=== PATIENT | male | born 1940 | race Caucasian/White ===

== ENCOUNTER 2022-06-01 18:34 | Observation (INO) ==
--- NOTE | 2022-06-01 20:03 | DR.N/VMALE ---
HPI Time Seen Time Seen by Provider: 06/01/22 20:01 Primary Care Physician Primary Care Physician: pascual marvin Complaints Chief Complaint Doctors Comments: NAUSEA AND VOMITING FOR 2 DAYS AND INCREASED URINATION WHICH IS A CHRONIC PROBLEM. WAS URINATING A LOT AND WAS STARTED ON MYRBETRIQ TO SLOW IT DOWN. HE HAS TAKE 3 DOSES SO FAR AND NOW HE HAS PROBLEMS URINATING. Chief Complaint:: pt c/o n/v x 2 with fever and freq urinations which is a chronic problem COVID-19 Coronavirus risk:travel/contact w/high risk person: No Has patient experienced Coronavirus symptoms: Yes Coronavirus symptoms experienced: Fever Source History Provided: Patient Mode of Arrival Mode of Arrival: Ambulatory Timing Onset of Chief Complaint: 06/01/22 PMH PMH Past Medical History: Yes Past Medical History: Diabetes and Hypertension Past Surgical History: Yes Surgical History: Appendectomy Family History History of Family Medical Conditions: Yes Family Medical History: Diabetes Mellitus, Cancer and Hypertension Social History Type of Tobacco Use: None Does any household member use tobacco: No Alcohol Use: None Do you use any recreational Drugs:: No Lives With: Family Lives Where: Home Travel Risk Coronavirus risk:travel/contact w/high risk person: No Has patient experienced Coronavirus symptoms: Yes Coronavirus symptoms experienced: Fever Infectious screening In the last 2 months have you had wt loss of >10#?: NO Have you had fever, night sweats or hemotysis?: No Have you traveled outside the country in the last 6 months?: No Isolation: Droplet ROS Review of Systems Constitutional: Other (NAUSEA,VOMITING AND FREQUENT URINATION FOR 3 DAYS. ) Eyes: No Symptoms Reported ENTM: No Symptoms Reported Respiratoy: No Symptoms Reported Cardiovascular: No Symptoms Reported Gastrointestinal/Abdominal: No Symptoms Reported Genitourinary: Dysuria and Other (URINARY RETENTION) Neurological: No Symptoms Reported Musculoskeletal: No Symptoms Reported Integumentary: No Symptoms Reported Hematologic/Lymphatic: No Symptoms Reported Endocrine: No Symptoms Reported Psychiatric: No Symptoms Reported PE Vital Signs Vitals: Temperature 99 F Pulse Rate [Right Brachial] 92 Pulse Rate 100 Respiratory Rate 18 Blood Pressure [Right Arm] 191/86 Blood Pressure 203/92 O2 Sat by Pulse Oximetry 98 General Limitations: Physical Limitation (MILD AMBULATION DEFICIT) Head Head Exam: Normal Inspection and Atraumatic; negative Normocephalic Eyes Eye exam: Normal Appearance, PERRL and EOMI ENT ENT Exam: Normal Exam, Normal Oropharynx and Normal External Ear Exam Neck Neck Exam: Normal Inspection, Full ROM and Trachea Midline Chest Chest Inspection: Normal Inspection and Symmetric Chest Wall Rise Cardiovascular Cardiovascular Exam: Regular Rate and Normal Rhythm Abdominal Exam Abdominal Exam: Normal Inspection, Normal Bowel Sounds and Soft Rectal Rectal Exam: Deferred MDM Differential Diagnosis Differential Diagnosis: Considerations may Include:: Urinary Obstruction, U rinary Tract Infection and Other (HYPERTENTION) COURSE Treatment Treatment: PATIENT WS FOUND TO HAVE UTI AND WAS GIVEN ROCEPHINE ONE GRAM IV AND WAS NAUSEATEDAND WAS GIVEN ZOFRAN IV AND CLONIDINE 0.1MG ORALLY FOR HYPERTENSIO N. DR MUNOZ WAS [place] AT [address] [place] [address] THAT PATIENT HAS UTI AND HAD FAILED OUTPATIENT ANTIBIOTIC AND HES STATE TO PUT PATIENT ON ANOTHER ANTIOBIOTIC AND NOT ROCEPHINE. HE SUGESTED PIPERACILLIN/TZOBACTAM AND FLOMAX SINCE PATIENT WAS NOW HAVING RETNTION AFTER STARTING MYRBETRIQ. I STOPPED THE MYRBETRIQ. PATIENT AND SPOUSE WAS ADVISED OF THE INTENT TO ADMIT TO OBSERVATION AND THEY WERE AGREABLE TO THE OBSERVATION. ROR Labs Reviewed Laboratory Results Reviewed?: Yes Result Diagrams: 06/01/22 23:00 06/01/22 23:00 Laboratory: WBC 12.6 X10^3/uL (3.6-10.0) H 06/01/22 23:00 RBC 4.31 X10^6/uL (4.7-6.0) L 06/01/22 23:00 Hgb 12.7 g/dL (13.5-18.0) L 06/01/22 23:00 Hct 38.2 % (42.0-54.0) L 06/01/22 23:00 MCV 88.7 fL (80.0-100.0) 06/01/22 23:00 MCH 29.4 pg (27.0-34.0) 06/01/22 23:00 MCHC 33.2 g/dL (33.0-35.0) 06/01/22 23:00 RDW 14.1 % (11.6-16.5) 06/01/22 23:00 Plt Count 135 X10^3/uL (150.0-450.0) L 06/01/22 23:00 MPV 8.1 fL (7.4-11.0) 06/01/22 23:00 Neut % (Auto) 78.4 % (42.0-75.0) H 06/01/22 23:00 Lymph % (Auto) 12.8 % (21.0-51.0) L 06/01/22 23:00 Harlan % (Auto) 7.9 % (0.0-13.0) 06/01/22 23:00 Eos % (Auto) 0.2 % (0.9-2.9) L 06/01/22 23:00 Baso % (Auto) 0.7 % (0.2-1.0) 06/01/22 23:00 Neut # (Auto) 9.9 x10^3/uL (2.2-4.8) H 06/01/22 23:00 Lymph # (Auto) 1.6 X10^3/uL (1.3-2.9) 06/01/22 23:00 Harlan # (Auto) 1.0 x10^3/uL (0.3-0.8) H 06/01/22 23:00 Eos # (Auto) 0.0 x10^3/uL (0.0-0.2) 06/01/22 23:00 Baso # (Auto) 0.1 X10^3/uL (0.0-0.1) 06/01/22 23:00 Absolute Nucleated RBC 0.0 /100WBC 06/01/22 23:00 Sodium 143 mmol/L (136-145) 06/01/22 23:00 Corrected Sodium 144 mmol/L (136-145) 06/01/22 23:00 Potassium 4.1 mmol/L (3.5-5.1) 06/01/22 23:00 Chloride 105 mmol/L (98-107) 06/01/22 23:00 Carbon Dioxide 30.4 mmol/L (21-32) 06/01/22 23:00 BUN 31 mg/dL (7-18) H 06/01/22 23:00 Creatinine 1.50 mg/dL (0.70-1.30) H 06/01/22 23:00 Est GFR (MDRD) Af Amer 57 (>60) L 06/01/22 23:00 Est GFR (MDRD) Non-Af 48 (>60) L 06/01/22 23:00 Glucose 133 mg/dL (65-99) H 06/01/22 23:00 Calcium 8.1 mg/dL (8.5-10.1) L 06/01/22 23:00 Corrected Calcium 8.7 mg/dL (8.5-10.1) 06/01/22 23:00 Total Bilirubin 1.30 mg/dL (0.2-1.0) H 06/01/22 23:00 AST 22 Units/L (15-37) 06/01/22 23:00 ALT 31 Units/L (12-78) 06/01/22 23:00 Alkaline Phosphatase 82 Units/L (46-116) 06/01/22 23:00 Total Protein 6.5 g/dL (6.4-8.2) 06/01/22 23:00 Albumin 3.3 g/dL (3.4-5.0) L 06/01/22 23:00 Globulin 3.2 g/dL (2.5-4.5) 06/01/22 23:00 Albumin/Globulin Ratio 1.0 Ratio (1.1-2.1) L 06/01/22 23:00 Specimen Type Clean catch urine 06/01/22 20: Urine Color Yellow (YELLOW) 06/01/22 20: Urine Appearance Cloudy (CLEAR) 06/01/22 20:39 Urine pH 7.0 (5.0 - 8.0) 06/01/22 20: Ur Specific [place] 1.015 (1.000-1.030) 06/01/22 20: Urine Protein 3+ (NEGATIVE) 06/01/22 20:39 Urine Glucose (UA) Negative (NEGATIVE) 06/01/22 20:39 Urine Ketones Negative (NEGATIVE) 06/01/22 20: Urine Blood 4+ (NEGATIVE) 06/01/22 20: Urine Nitrite Positive (NEGATIVE) 06/01/22 20: Urine Bilirubin Negative (NEGATIVE) 06/01/22 20:39 Urine Urobilinogen Normal (NORMAL) 06/01/22 20:39 Ur Leukocyte Esterase 2+ (NEGATIVE) 06/01/22 20: Urine RBC 10-20 /HPF (0-3) A 06/01/22 20: Urine WBC 20-30 /HPF (0-5) A 06/01/22 20:39 Ur Squamous Epith Cells Rare /HPF (NEGATIVE) 06/01/22 20:39 Urine Bacteria 3+ /HPF (NEGATIVE) 06/01/22 20:39 Ur Culture Indicated? Yes/culture set up 06/01/22 20:39 SARS-CoV-2 (PCR) Negative (NEGATIVE) 06/01/22 18:51 Influenza Type A (PCR) Negative (NEGATIVE) 06/01/22 18:51 Influenza Type B (PCR) Negative (NEGATIVE) 06/01/22 18:51 RSV (PCR) Negative (NEGATIVE) 06/01/22 18:51 Opioid Opioid Risk Tool Age (Brain box if 16-45): No History of Preadolescent Sexual Abuse: No Total: 0 Total Score Risk Category: Low Risk Copyright: Jose ALMONTE predicting aberrant behaviors Discharge Plan Diagnosis Discharge Problem: Urinary tract infection, Acute urinary retention, Hypertension Discharge Plan Patient Disposition: 09 ADMITTED INPATIENT Condition: Stable Orders to Discharge Patient Discharge Orders: Transfer (Routine); Ordered 06/02/22 Ordered By: Dwight Mohan
[2022-06-01 20:46] LABS: BILIRUBIN,URINE NEGATIVE (NEGATIVE); BLOOD/HEMOGLOBIN,URINE 4+ (NEGATIVE); GLUCOSE, URINE NEGATIVE (NEGATIVE); KETONES,URINE NEGATIVE (NEGATIVE); LEUKOCYTE ESTERASE ,URINE 2+ (NEGATIVE); NITRITES,URINE POSITIVE (NEGATIVE); PROTEIN,URINE 3+ (NEGATIVE); UROBILINOGEN,URINE NORMAL (NORMAL)
[2022-06-01 21:01] LABS: APPEARANCE,URINE CLOUDY (CLEAR); COLOR,URINE YELLOW (YELLOW)
[2022-06-01 21:02] LABS: BACTERIA,URINE 3+ /HPF (NEGATIVE); SQUAMOUS EPITHELIAL CELL,UR RARE /HPF (NEGATIVE)
[2022-06-01] MEDS ORDERED: ROCEPHIN VIAL 1 GRAM 1 G in NS 100 ML IV 100 ML IV ONE (22:47)
[2022-06-01] MEDS ORDERED: ROCEPHIN VIAL 1 GRAM ONE (22:48)
[2022-06-01] MEDS ORDERED: NS 100 ML IV 100 ML ONE (22:48)
[2022-06-01 23:11] LABS: BASOPHILS # (AUTO) 0.1 X10^3/uL (0.0-0.1); BASOPHILS % (AUTO) 0.7 % (0.2-1.0); EOSINOPHILS % (AUTO) 0.2 % (0.9-2.9); HEMATOCRIT 38.2 % (42.0-54.0); HEMOGLOBIN 12.7 g/dL (13.5-18.0); LYMPHOCYTES # (AUTO) 1.6 X10^3/uL (1.3-2.9); LYMPHOCYTES % (AUTO) 12.8 % (21.0-51.0); MEAN CORPUSCULAR HEMOGLOBIN 29.4 pg (27.0-34.0); MEAN CORPUSCULAR HGB CONC 33.2 g/dL (33.0-35.0); MEAN CORPUSCULAR VOLUME 88.7 fL (80.0-100.0); MEAN PLATELET VOLUME 8.1 fL (7.4-11.0); MONOCYTES % (AUTO) 7.9 % (0.0-13.0); NEUTROPHILS # (AUTO) 9.9 x10^3/uL (2.2-4.8); NEUTROPHILS % (AUTO) 78.4 % (42.0-75.0); RED BLOOD COUNT 4.31 X10^6/uL (4.7-6.0); RED CELL DISTRIBUTION WIDTH 14.1 % (11.6-16.5); WHITE BLOOD COUNT 12.6 X10^3/uL (3.6-10.0)
[2022-06-01 23:22] LABS: ALBUMIN 3.3 g/dL (3.4-5.0); CALCIUM 8.1 mg/dL (8.5-10.1); CARBON DIOXIDE 30.4 mmol/L (21-32); COR CA(FOR HYPOALB) 8.7 mg/dL (8.5-10.1); CREATININE 1.5 mg/dL (0.70-1.30); TOTAL PROTEIN 6.5 g/dL (6.4-8.2)
[2022-06-02] MEDS ORDERED: CATAPRES TAB 0.1 MG PO ONE (00:11)
[2022-06-02] MEDS ORDERED: CATAPRES TAB 0.1 MG ONE (00:15)
[2022-06-02] MEDS ORDERED: NS 100 ML IV 100 ML ONE (00:36)
[2022-06-02] MEDS ORDERED: ZOSYN VIAL 3.375 GRAMS IV ONE (00:36)
[2022-06-02] MEDS: ZOSYN VIAL 3.375 GRAMS 3.375 G in NS 100 ML IV 100 ML IV SCH ×4 (00:40→21:26)
[2022-06-02 03:01] VITALS: BMI 23.0
[2022-06-02 05:48] LABS: BASOPHILS # (AUTO) 0.1 X10^3/uL (0.0-0.1); BASOPHILS % (AUTO) 0.7 % (0.2-1.0); EOSINOPHILS % (AUTO) 0.3 % (0.9-2.9); HEMATOCRIT 38.8 % (42.0-54.0); HEMOGLOBIN 12.9 g/dL (13.5-18.0); LYMPHOCYTES # (AUTO) 1.3 X10^3/uL (1.3-2.9); LYMPHOCYTES % (AUTO) 10.8 % (21.0-51.0); MEAN CORPUSCULAR HEMOGLOBIN 29.5 pg (27.0-34.0); MEAN CORPUSCULAR HGB CONC 33.3 g/dL (33.0-35.0); MEAN CORPUSCULAR VOLUME 88.7 fL (80.0-100.0); MONOCYTES # (AUTO) 0.9 x10^3/uL (0.3-0.8); NEUTROPHILS # (AUTO) 9.3 x10^3/uL (2.2-4.8); NEUTROPHILS % (AUTO) 80.2 % (42.0-75.0); RED BLOOD COUNT 4.37 X10^6/uL (4.7-6.0); RED CELL DISTRIBUTION WIDTH 14.7 % (11.6-16.5); WHITE BLOOD COUNT 11.6 X10^3/uL (3.6-10.0)
[2022-06-02 06:00] LABS: ALBUMIN 3.1 g/dL (3.4-5.0); CARBON DIOXIDE 26.6 mmol/L (21-32); COR CA(FOR HYPOALB) 8.7 mg/dL (8.5-10.1); CREATININE 1.6 mg/dL (0.70-1.30); TOTAL PROTEIN 6.2 g/dL (6.4-8.2)
[2022-06-02] MEDS: PriLOSEC PO SCH ×2 (08:24→20:38)
[2022-06-02] MEDS: ASPIRIN EC 81 MG PO SCH (08:24)
[2022-06-02] MEDS: LIPITOR TAB 10 MG PO SCH (08:24)
[2022-06-02] MEDS: FLOMAX PO SCH ×2 (08:24→08:25)
[2022-06-02] MEDS: ZESTRIL TAB 40 MG PO SCH (08:28)
[2022-06-02] MEDS: NORVASC TAB 10 MG PO SCH (08:28)
[2022-06-03 04:54] LABS: BASOPHILS # (AUTO) 0.1 X10^3/uL (0.0-0.1); BASOPHILS % (AUTO) 0.6 % (0.2-1.0); EOSINOPHILS # (AUTO) 0.2 x10^3/uL (0.0-0.2); HEMATOCRIT 34.1 % (42.0-54.0); HEMOGLOBIN 11.4 g/dL (13.5-18.0); LYMPHOCYTES # (AUTO) 1.7 X10^3/uL (1.3-2.9); LYMPHOCYTES % (AUTO) 16.6 % (21.0-51.0); MEAN CORPUSCULAR HEMOGLOBIN 29.8 pg (27.0-34.0); MEAN CORPUSCULAR HGB CONC 33.6 g/dL (33.0-35.0); MEAN CORPUSCULAR VOLUME 88.8 fL (80.0-100.0); MEAN PLATELET VOLUME 8.4 fL (7.4-11.0); MONOCYTES % (AUTO) 9.5 % (0.0-13.0); NEUTROPHILS # (AUTO) 7.2 x10^3/uL (2.2-4.8); NEUTROPHILS % (AUTO) 71.3 % (42.0-75.0); RED BLOOD COUNT 3.84 X10^6/uL (4.7-6.0); RED CELL DISTRIBUTION WIDTH 14.4 % (11.6-16.5); WHITE BLOOD COUNT 10.1 X10^3/uL (3.6-10.0)
[2022-06-03 05:07] LABS: ALBUMIN 2.6 g/dL (3.4-5.0); CALCIUM 7.3 mg/dL (8.5-10.1); CARBON DIOXIDE 27.9 mmol/L (21-32); COR CA(FOR HYPOALB) 8.4 mg/dL (8.5-10.1); CREATININE 1.94 mg/dL (0.70-1.30); TOTAL PROTEIN 5.7 g/dL (6.4-8.2)
[2022-06-03] MEDS: ZOSYN VIAL 3.375 GRAMS 3.375 G in NS 100 ML IV 100 ML IV SCH ×3 (05:46→21:02)
[2022-06-03] MEDS: ASPIRIN EC 81 MG PO SCH (08:25)
[2022-06-03] MEDS: NORVASC TAB 10 MG PO SCH (08:25)
[2022-06-03] MEDS: LIPITOR TAB 10 MG PO SCH (08:25)
[2022-06-03] MEDS: PriLOSEC PO SCH ×2 (08:25→21:00)
[2022-06-03] MEDS: ZESTRIL TAB 40 MG PO SCH (08:25)
[2022-06-03] MEDS: FLOMAX PO SCH (08:26)
[2022-06-03] MEDS ORDERED: INVOKANA PO SCH (10:00)
[2022-06-03] MEDS: INVOKANA PO SCH (11:15)
[2022-06-03] MEDS: ACTOS PO SCH (11:16)
[2022-06-03] MEDS: LR 1,000 ML IV 1,000 ML IV SCH ×2 (11:16→19:55)
[2022-06-04] MEDS: LR 1,000 ML IV 1,000 ML IV SCH (02:49)
[2022-06-04 05:07] LABS: BASOPHILS % (AUTO) 0.2 % (0.2-1.0); EOSINOPHILS # (AUTO) 0.3 x10^3/uL (0.0-0.2); EOSINOPHILS % (AUTO) 3.9 % (0.9-2.9); HEMATOCRIT 34.3 % (42.0-54.0); HEMOGLOBIN 11.6 g/dL (13.5-18.0); LYMPHOCYTES # (AUTO) 1.1 X10^3/uL (1.3-2.9); LYMPHOCYTES % (AUTO) 16.5 % (21.0-51.0); MEAN CORPUSCULAR HEMOGLOBIN 29.8 pg (27.0-34.0); MEAN CORPUSCULAR HGB CONC 33.7 g/dL (33.0-35.0); MEAN CORPUSCULAR VOLUME 88.5 fL (80.0-100.0); MEAN PLATELET VOLUME 8.5 fL (7.4-11.0); MONOCYTES # (AUTO) 0.7 x10^3/uL (0.3-0.8); MONOCYTES % (AUTO) 9.5 % (0.0-13.0); NEUTROPHILS # (AUTO) 4.8 x10^3/uL (2.2-4.8); NEUTROPHILS % (AUTO) 69.9 % (42.0-75.0); RED BLOOD COUNT 3.88 X10^6/uL (4.7-6.0); RED CELL DISTRIBUTION WIDTH 14.5 % (11.6-16.5); WHITE BLOOD COUNT 6.8 X10^3/uL (3.6-10.0)
[2022-06-04 05:16] LABS: ALBUMIN 2.5 g/dL (3.4-5.0); CALCIUM 7.7 mg/dL (8.5-10.1); CARBON DIOXIDE 26.7 mmol/L (21-32); COR CA(FOR HYPOALB) 8.9 mg/dL (8.5-10.1); CREATININE 1.72 mg/dL (0.70-1.30); TOTAL PROTEIN 5.7 g/dL (6.4-8.2)
[2022-06-04] MEDS: ZOSYN VIAL 3.375 GRAMS 3.375 G in NS 100 ML IV 100 ML IV SCH (05:32)
[2022-06-04] MEDS: INVOKANA PO SCH ×2 (08:14→08:22)
[2022-06-04] MEDS: LIPITOR TAB 10 MG PO SCH (08:14)
[2022-06-04] MEDS: NORVASC TAB 10 MG PO SCH (08:14)
[2022-06-04] MEDS: ACTOS PO SCH ×2 (08:14→08:21)
[2022-06-04] MEDS: ASPIRIN EC 81 MG PO SCH (08:15)
[2022-06-04] MEDS: FLOMAX PO SCH (08:15)
[2022-06-04] MEDS: PriLOSEC PO SCH (08:15)
[2022-06-04] MEDS: ZESTRIL TAB 40 MG PO SCH (08:15)
[2022-06-04] MEDS ORDERED: LOVENOX INJ 40 MG SYR SC SCH (09:00)
[2022-06-04] MEDS ORDERED: BACTRIM DS TAB PO SCH (10:00)
[2022-06-04 13:00] VITALS: BP 150/68
== END 2022-06-04 14:30 | disposition home or self-care (01) ==
LOC: ER 18:34 → MED/SURG 18:34
PROVIDERS: ADMIT Obstetrics & Gynecology Obstetrics; ATTEND Internal Medicine
DX: B96.4 Proteus (mirabilis) (morganii) as the cause of diseases classified elsewhere; N40.1 Benign prostatic hyperplasia with lower urinary tract symptoms; E86.0 Dehydration; R51.9 Headache, unspecified; I10 Essential (primary) hypertension; R53.1 Weakness; R10.84 Generalized abdominal pain; N28.89 Other specified disorders of kidney and ureter; J32.0 Chronic maxillary sinusitis; E11.65 Type 2 diabetes mellitus with hyperglycemia; N39.0 Urinary tract infection, site not specified; Z79.899 Other long term (current) drug therapy; Z20.822 Contact with and (suspected) exposure to COVID-19; R11.2 Nausea with vomiting, unspecified; N41.0 Acute prostatitis